=== PATIENT | male | born 1985 | race Caucasian/White ===

== ENCOUNTER 2021-10-23 07:49 | Emergency (ER) | payer OTHER, SELFPAY ==
[2021-10-23 07:55] VITALS: PULSE 124; RESP 20; TEMP 36.4; O2SAT 97
[2021-10-23] MEDS: LORazepam (*CRX) 1 MG TABLET 2 MG PO (08:10)
--- NOTE | 2021-10-23 08:10 | ED.ALCOHOL ---
HPI - Alcohol General Chief Complaint: Alcohol Stated Complaint: ETOH withdrawal Time Seen by Provider: 10/23/21 07:51 History of Present Illness HPI narrative: 36yoM states he just wants some ativan so he doesn't have go to into withdrawal; his last drink was 8 hours ago. He is denying any symptoms currently other than he just wants to go so he can find a store to buy himself another drink. Related Data Allergies Allergy/AdvReac Type Severity Reaction Status Date / Time No Known Allergies Allergy Verified 10/23/21 08:01 Review of Systems Review of Systems: CONST: No fever. HEENT: No sore throat C/V: No chest pain RESP: No cough GI: no abdominal pain : No dysuria. M/S: No joint pain. SKIN: No rash. NEURO: [No headache or focal numbness or weakness] PSYCH: No thoughts of self-harm or harm of others PMFSH Past Medical History Medical History (Updated 10/23/21 @ 08:26 by Tania Vega MD) Alcohol use disorder Surgical History Surgical History (Updated 10/23/21 @ 08:26 by Tania Vega MD) H/O exploratory laparotomy Social History Social History (Updated 10/23/21 @ 08:26 by Tania Vega MD) Alcohol intake: current Exam Narrative: EXAMINATION OF ORGAN SYSTEMS/BODY AREAS: Constitutional: Vital signs per nursing GENERAL:[No acute distress, non-toxic appearing.] HEAD: Normal with no signs of head trauma. EYES: EOMI, conjunctiva normal ENT: Hearing grossly intact LUNGS: Nonlabored breathing. HEART: Regular rate, tachycardic ABD: [Soft], nondistended EXT: Normal range of motion SKIN: [No rashes or lesions.] NEURO: [Alert and oriented x 3. No gross focal sensory or strength deficits. No slurred speech; ambulating with steady gait] PSYCH: Slightly manic and pressured speech but cooperative, answering questions, directable. Course Vital Signs Vital signs: Vital Signs Temperature 97.6 F 10/23/21 07:55 Pulse Rate 124 H 10/23/21 07:55 Respiratory Rate 20 10/23/21 07:55 Pulse Oximetry 97 10/23/21 07:55 Oxygen Delivery Room Air 10/23/21 07:55 Temperature 97.6 F 10/23/21 07:55 Pulse Rate 124 H 08/20/22 07:55 Respiratory Rate 20 10/23/21 07:55 Pulse Oximetry 97 10/23/21 07:55 Oxygen Delivery Room Air 10/23/21 07:55 MDM - Alcohol MDM Narrative Medical decision making narrative: 36-year-old male presents stating that he was only brought here because he was worried about going to withdrawal, but he did not want to be here and he wanted to leave so that he could buy beer so that he would not go into withdrawal. Vital signs here notable for tachycardia while he was striding around the room but he is refusing vital signs otherwise. On exam he does appear slightly manic however he is currently clinically sober with normal speech and ambulating with normal steady gait, he does not want to stay, and I cannot hold him here against as well. I do not feel he is acutely psychotic at this time nor do I have any reason to hold him, he is still of sound mind with intact insight/reasoning. He is given a bus pass and I did give him a small dose of Ativan, he is calm and cooperative, he was discharged from here ambulating with steady gait in no apparent distress. Discharge Plan Discharge Clinical Impression: Alcoholic intoxication Patient Disposition: Home, Self-Care Condition: Stable Instructions: Antibiotic Form, Abuse of Alcohol (ED) Additional Instructions: Please follow up with your doctor; come back if you feel worse. Follow-up/Referrals: Estelle Norwood DO [Physician] - 2 Days
== END 2021-10-23 08:20 | disposition home or self-care (01) ==
LOC: ANHED 08:31
PROVIDERS: Emergency Provider Emergency Medicine
DX: F10.120 Alcohol abuse with intoxication, uncomplicated (principal)
CPT/HCPCS: 99283; A9270

== ENCOUNTER 2023-04-24 21:58 | Emergency (ER) | payer OTHER, SELFPAY ==
[2023-04-24 22:14] VITALS: BP 142/79; PULSE 95; RESP 20; TEMP 36.6; O2SAT 98
--- NOTE | 2023-04-24 22:20 | ED.ALCOHOL ---
HPI - Alcohol General Chief Complaint: Alcohol Stated Complaint: ETOH+ FOUND [facility] Time Seen by Provider: 04/24/23 22:13 History of Present Illness HPI narrative: 37-year-old male presenting to the emergency department for evaluation of alcohol intoxication. Patient states he is attempting to quit alcohol but did drink multiple beers and some shots today. Patient denies any homicidal suicidal ideation. Patient was found psychiatric and patient is unsure how he got there. patient does admit to alcohol intoxication but denies any homicidal suicidal ideation. Related Data Allergies Allergy/AdvReac Type Severity Reaction Status Date / Time No Known Allergies Allergy Verified 04/24/23 22:45 Review of Systems Review of Systems: All systems reviewed & are unremarkable except as noted in HPI and below PMFSH Past Medical History Medical History (Updated 04/26/23 @ 00:01 by Alea Gilbert) Alcohol use disorder Surgical History Surgical History (Updated 10/23/21 @ 08:26 by Tania Vega MD) H/O exploratory laparotomy Social History Social History (Updated 10/23/21 @ 08:26 by Tania Vega MD) Alcohol intake: current Exam Narrative: APPEARANCE: Intoxicated but well-appearing HEAD: normocephalic, atraumatic. EYES: PERRLA/EOMI, conjunctivae clear. NOSE: Normal no drainage EARS:TMS clear with good light reflex. THROAT: Pharynx clear, no exudate. NECK: Supple. No adenopathy, no masses. RESPIRATORY: Airway patent, respirations nonlabored. Clear to auscultation bilaterally, no rales, rhonchi, wheezing. CARDIOVASCULAR: Regular rate and rhythm without murmurs rubs or gallops. ABDOMINAL: Soft, nontender, nondistended, normal bowel sounds MUSCULOSKELETAL: Moves all extremities. Strength/ROM intact, No edema, No calf tenderness. NEURO: Alert. Cranial nerves II through XII intact. grossly intact SKIN: Warm, dry. Normal Color Course Course Emergency Course: 37-year-old male presenting emergency department for evaluation of alcohol intoxication. Patient was denying homicidal or suicidal ideation. Patient states he does not have a place to go and does not have any transportation. Patient care is being signed out to the daytime physician pending patient's sobriety or transportation. Vital Signs Vital signs: Vital Signs Temperature 97.8 F 04/24/23 22:14 Pulse Rate 95 04/24/23 22:14 Respiratory Rate 20 04/24/23 22:14 Blood Pressure 142/79 H 04/24/23 22:14 Pulse Oximetry 98 04/24/23 22:14 Oxygen Delivery Room Air 04/24/23 22:14 Temperature 97.8 F 04/24/23 22:14 Pulse Rate 95 04/24/23 22:14 Respiratory Rate 20 04/24/23 22:14 Blood Pressure 142/79 H 04/24/23 22:14 Pulse Oximetry 98 04/24/23 22:14 Oxygen Delivery Room Air 04/24/23 22:14 MDM - Alcohol Lab Data 04/24/23 23:17 04/24/23 23:17 Labs: Lab Results 04/24/23 Range/Units 23:17 WBC Cancelled RBC Cancelled Hgb Cancelled Hct Cancelled MCV Cancelled MCH Cancelled MCHC Cancelled RDW Cancelled Plt Count Cancelled MPV Cancelled Immature Gran % (Auto) Cancelled Neut % (Auto) Cancelled Lymph % (Auto) Cancelled [place] % (Auto) Cancelled Eos % (Auto) Cancelled Baso % (Auto) Cancelled Lymph # (Auto) Cancelled [place] # (Auto) Cancelled Eos # (Auto) Cancelled Baso # (Auto) Cancelled Abs Immat Gran (auto) Cancelled Absolute Neuts (auto) Cancelled Absolute Nucleated RBC Cancelled Nucleated RBC % Cancelled % Immature Plt Fraction Cancelled PT 24.2 H (11.1-14.7) Seconds INR 2.0 APTT 32.8 (22.3-36.8) SECONDS Sodium 143 (137-145) mmol/L Potassium 3.9 (3.4-5.0) mmol/L Chloride 107 (98-107) mmol/L Carbon Dioxide 23 (22-30) mmol/L Anion Gap 13 (8-16) mmol/L BUN 12 (9-20) mg/dL Creatinine 0.80 (0.7-1.3) mg/dL Estim Creat Clear Calc Not Reportable Estim
--- NOTE | 2023-04-24 23:08 | PC.NURSE ---
This RN and TIERRA Jimenes have been unsuccessful on obtaining blood from pt. KURT Solano at bedside attempting.
[2023-04-24 23:29] LABS: Appearance Urine Clear (Clear); Bacteria Urine None Seen /hpf; Bilirubin Urine Negative (Negative); Blood Urine Negative (Negative); Color Urine Yellow (Yellow); Glucose Urine UA Negative (Negative); Ketones Urine Negative (Negative); Leukocyte Esterase Ur Negative LEU/UL (Negative); Nitrate Urine Negative (Negative); Non Pathogenic Casts 0-2; Protein Urine 1+ mg/dL (Negative); RBC Urine 0-2 /hpf (0-2); Specific Grav Ur 1.009 (1.001-1.035); Squamous Epithelial Cell Urine None seen /hpf (Few); Urobilinogen Urine 0.2 mg/dL (<2.0); WBC Urine 0-5 /hpf
[2023-04-24 23:30] LABS: Add Urine Microscopic? YES
[2023-04-24 23:34] LABS: Partial Thromboplastin Time 32.8 SECONDS (22.3-36.8); Prothrombin Time 24.2 Seconds (11.1-14.7)
[2023-04-24 23:56] LABS: Ethanol 330 mg/dL (<10)
[2023-04-24 23:59] LABS: Alanine Aminotransferase 67 U/L (6-50); Albumin Level 4.4 g/dL (3.5-5.1); Alkaline Phosphatase 100 U/L (38-126); Anion Gap 13 mmol/L (8-16); Aspartate Amino Transferase 127 U/L (17-59); Bilirubin,Total 0.6 mg/dL (0.2-1.3); Blood Urea Nitrogen 12 mg/dL (9-20); Calcium 8.5 mg/dL (8.4-10.2); Carbon Dioxide 23 mmol/L (22-30); Chloride 107 mmol/L (98-107); Estimated Glomerular Filt Rate > 60; Glucose 99 mg/dL (65-110); Potassium 3.9 mmol/L (3.4-5.0); Sodium 143 mmol/L (137-145)
--- NOTE | 2023-04-25 01:31 | PC.NURSE ---
Pt resting comfortably in bed sleeping. Chest rise and fall noted.
--- NOTE | 2023-04-25 06:37 | PC.NURSE ---
This RN and PAUL Almonte went into pt room to obtain lab redraw and covid pcr. Pt allowing instructor adjunct surgical technician to draw labs, but refusing covid swab at this time. Charge, KURT Dudley made aware.
--- NOTE | 2023-04-25 07:13 | PC.NURSE ---
report given to KURT Austin at this time.
--- NOTE | 2023-04-25 07:25 | PC.NURSE ---
Pt refuses Covid swab and blood draw.
--- NOTE | 2023-04-25 08:25 | PC.NURSE ---
Pt denies SI and HI and stated he wanted to leave. Pt was A&Ox4. Pt asked for clothing and patient exited ER. Pt non cooperative with staff by refusing blood draw and covid swab.
--- NOTE | 2023-04-25 08:30 | PC.NURSE ---
Pt left by elopement.
== END 2023-04-25 08:31 | disposition left against medical advice (07) ==
PROVIDERS: Emergency Provider Emergency Medicine
DX: F10.129 Alcohol abuse with intoxication, unspecified (principal); Y90.8 Blood alcohol level of 240 mg/100 ml or more
CPT/HCPCS: 36415; 80053; 80307; 81001; 85610; 85730; 99283

== ENCOUNTER 2023-05-02 14:19 | Emergency (ER) | payer OTHER, SELFPAY ==
--- NOTE | ~2023-05-02 | US_ITS ---
EXAMINATION: US venous doppler UE RT DATE: 05/02/2023 17:57 INDICATION: IV infiltration in R forearm, area of swelling/red . TECHNIQUE: Grayscale ultrasound images without and with compression and Doppler ultrasound images of the right upper extremity veins were obtained. COMPARISON: None. FINDINGS: The visualized portions of the right internal jugular vein, subclavian vein, axillary vein, brachial veins, basilic vein, cephalic vein, radial vein, and ulnar vein are patent. IMPRESSION: No deep venous thrombosis. Reviewed, dictated and finalized at location K. ZI NITRATOR OPERATOR IMPRESSION: No deep venous thrombosis.
[2023-05-02 14:30] VITALS: BP 145/79; PULSE 97; RESP 20; TEMP 37.4; O2SAT 98
[2023-05-02 16:37] VITALS: BP 139/92; PULSE 91; RESP 17; TEMP 36.3; O2SAT 100
--- NOTE | 2023-05-02 16:45 | ED.SKABFB ---
HPI - Skin/Abscess/Foreign Bdy General Chief complaint: Skin/Abscess/Foreign Body Stated complaint: skin right posterior forearm Time Seen by Provider: 05/02/23 16:40 Focused HPI: Patient is a 37 y/o male who presents to the ED with c/o R forearm pain/swelling. Patient reports he was recently admitted to [facility] for 5 days for alcohol detox. He was discharged today and is currently residing at [facility]. He had an IV in his R forearm throughout his hospitalization and has since noticed an area of redness, swelling, tenderness at the site of the IV. He is concerned for infection. Denies fevers. Denies previous history of blood clots. Denies chest pain or shortness of breath. GENERAL: Well-appearing, well-nourished, and in no acute distress. HEAD: Normocephalic, atraumatic. CHEST: Clear to auscultation. ?No respiratory distress. HEART: Regular rate and rhythm.? MSK: Approx 5x7cm area of induration to R ventral forearm with erythema, minimal warmth, central puncture wound from previous IV. Focal TTP surrounding puncture wound. No drainage. No appreciable fluctuance. NEURO: ?Alert and oriented x3. Patient screened in triage and initial orders placed.? ?Additional care and disposition to be based upon?diagnostic testing and treatment. Related Data Allergies Allergy/AdvReac Type Severity Reaction Status Date / Time No Known Allergies Allergy Verified 05/02/23 14:20 [facility] Past Medical History Medical History Alcohol use disorder Surgical History Surgical History H/O exploratory laparotomy Social History Social History Smoking status: Current every day smoker Alcohol intake: current Substance use: never Course Vital Signs Vital signs: Vital Signs Temperature 99.3 F 05/02/23 14:30 Pulse Rate 97 05/02/23 14:30 Respiratory Rate 20 05/02/23 14:30 Blood Pressure 145/79 H 05/02/23 14:30 Pulse Oximetry 98 05/02/23 14:30 Oxygen Delivery Room Air 05/02/23 14:30 Temperature 99.0 F 05/02/23 18:35 Pulse Rate 97 05/02/23 18:35 Respiratory Rate 18 05/02/23 18:35 Blood Pressure 140/70 05/02/23 18:35 Pulse Oximetry 98 05/02/23 18:35 Oxygen Delivery Room Air 05/02/23 14:30 MDM - Skin/Abscess/Foreign Bdy MDM Narrative Medical decision making narrative: MSE by ADONAY in triage. Lab Data 05/02/23 17:04 05/02/23 17:04 Labs: Lab Results 05/02/23 Range/Units 17:04 WBC 6.7 (4.5-10.0) K/mm3 RBC 4.18 L (4.6-6.20) M/mm3 Hgb 12.6 L (14.0-18.0) g/dL Hct 39.7 L (42.0-52.0) % MCV 95.0 (80-100) fl MCH 30.1 (26-34) pg MCHC 31.7 L (32-36) g/dl RDW 14.7 H (11.5-14.5) % Plt Count 233 (150-375) k/mm3 MPV 10.0 (7.4-10.4) fl Immature Gran % (Auto) 0.7 H (0-0.5) % Neut % (Auto) 61.0 (45.5-73.1) % Lymph % (Auto) 19.6 (18.3-44.2) % Hand % (Auto) 17.4 H (2.6-8.5) % Eos % (Auto) 0.4 (0-4.4) % Baso % (Auto) 0.9 (0.2-1.2) % Lymph # (Auto) 1.32 (0.9-3.2) K/mm3 Hand # (Auto) 1.2 H (0.1-0.6) K/mm3 Eos # (Auto) 0.0 (0-0.3) K/mm3 Baso # (Auto) 0.1 (0.0-0.1) K/mm3 Abs Immat Gran (auto) 0.05 H (0.00-0.031) K/mm3 Absolute Neuts (auto) 4.1 (1.3-6.7) K/mm3 Absolute Nucleated RBC 0.0 (0.0-0.012) K/mm3 Nucleated RBC % 0.0 (0.0-0.2) % % Immature Plt Fraction 4.4 (0.9-11.2) % ESR Cancelled Sodium 135 L (137-145) mmol/L Potassium 4.0 (3.4-5.0) mmol/L Chloride 102 (98-107) mmol/L Carbon Dioxide 24 (22-30) mmol/L Anion Gap 9 (8-16) mmol/L BUN 11 (9-20) mg/dL Creatinine 0.70 (0.7-1.3) mg/dL Estim Creat Clear Calc 135 ml/min Estimated GFR > 60 (59 - ) Glucose 94 (65-110) mg/dL Calcium 9.0 (8.4-10.2) mg/dL Total Bilirubin 0.6 (0.2-1.3) mg/dL AST 48 (17-59) U/L ALT 51 H (6-5
[2023-05-02] MEDS: ACETAMINOPHEN 500 MG TABLET 1000 MG PO (17:05)
[2023-05-02] MEDS: CEPHALEXIN 500 MG CAPSULE PO (17:05)
[2023-05-02 17:14] LABS: Basophils Absolute Auto 0.1 K/mm3 (0.0-0.1); Basophils Percent Auto 0.9 % (0.2-1.2); Eosinophils Percent Auto 0.4 % (0-4.4); Hematocrit 39.7 % (42.0-52.0); Hemoglobin 12.6 g/dL (14.0-18.0); Immature Granulocyte Absolute 0.05 K/mm3 (0.00-0.031); Immature Granulocyte Percent A 0.7 % (0-0.5); Immature Platelet Fraction Pct 4.4 % (0.9-11.2); Lymphocytes Absolute Auto 1.32 K/mm3 (0.9-3.2); Lymphocytes Percent Auto 19.6 % (18.3-44.2); Mean Corpuscular HGB Conc 31.7 g/dl (32-36); Mean Corpuscular Hemoglobin 30.1 pg (26-34); Monocytes Absolute Auto 1.2 K/mm3 (0.1-0.6); Monocytes Percent Auto 17.4 % (2.6-8.5); Neutrophils Absolute Auto 4.1 K/mm3 (1.3-6.7); Platelet Count Result 233 k/mm3 (150-375); Red Blood Count 4.18 M/mm3 (4.6-6.20); Red Cell Distribution Width 14.7 % (11.5-14.5); White Blood Count 6.7 K/mm3 (4.5-10.0)
[2023-05-02 17:26] LABS: Alanine Aminotransferase 51 U/L (6-50); Albumin Level 4.6 g/dL (3.5-5.1); Alkaline Phosphatase 92 U/L (38-126); Anion Gap 9 mmol/L (8-16); Aspartate Amino Transferase 48 U/L (17-59); Bilirubin,Total 0.6 mg/dL (0.2-1.3); Blood Urea Nitrogen 11 mg/dL (9-20); CRP < 0.5 mg/dL (<1.0); Carbon Dioxide 24 mmol/L (22-30); Chloride 102 mmol/L (98-107); Estimated CRCL calculation 135 ml/min; Estimated Glomerular Filt Rate > 60; Glucose 94 mg/dL (65-110); Sodium 135 mmol/L (137-145)
--- NOTE | 2023-05-02 17:26 | PC.NURSE ---
difficult lab draw, this RN attempted x3
--- NOTE | 2023-05-02 18:16 | ED.SKABFB ---
HPI - Skin/Abscess/Foreign Bdy General Chief complaint: Skin/Abscess/Foreign Body Stated complaint: skin right posterior forearm Time Seen by Provider: 05/02/23 16:40 History of Present Illness HPI narrative: This is a 37-year-old male, recently discharged from outside hospital for alcohol withdrawal, who presents to the emergency department complaining a red, tender swollen area on the right forearm. The patient states he had an IV in the area of his pain. He states he developed swelling for the past 2 days in that area. This is associated with some subjective fevers and chills. He has no other complaints at this time. Related Data Allergies Allergy/AdvReac Type Severity Reaction Status Date / Time No Known Allergies Allergy Verified 05/02/23 14:20 Review of Systems Review of Systems: CONSTITUTIONAL: Denies fever, chills, or sweats. CARDIOVASCULAR: Denies chest pain, palpitations, or edema. RESPIRATORY: Denies cough or dyspnea. GASTROINTESTINAL: Denies abdominal pain, nausea, vomiting, or diarrhea. GENITOURINARY: Denies dysuria or hematuria. SKIN: Denies rash or itching. MUSCULOSKELETAL: Right forearm pain denies back pain or myalgia. NEUROLOGIC: Denies headache, numbness, dizziness, or weakness. PSYCHIATRIC: Denies anxiety or depression. PMFSH Past Medical History Medical History Alcohol use disorder Surgical History Surgical History H/O exploratory laparotomy Social History Social History Smoking status: Current every day smoker Alcohol intake: current Substance use: never Exam Narrative: GENERAL: Well-developed, well-nourished, and in no acute distress. HEAD: Normocephalic, atraumatic. EYES: PERRLA and EOMI. CHEST: Clear to auscultation. No respiratory distress. No wheezes rales or rhonchi HEART: Regular rate and rhythm. No murmur heard. Normal peripheral pulses. EXTREMITIES: There is a 10 x 8 cm area of swelling noted over the dorsomedial aspect of the right forearm. Within this area there is approximate 4 x 6 cm area tender, blanching erythema. There is a punctate lesion at the center of these regions, consistent with previous IV site. Normal range of motion. No edema. SKIN: Skin otherwise warm, dry, no rash. NEURO: Alert and oriented x3. No focal deficit. Moving all 4 limbs spontaneously PSYCH: Normal mood and affect. Course Course Emergency Course: 18:19 - DVT ultrasound of the right upper extremity negative for DVT. Chemistries unremarkable. CBC demonstrates mild anemia with hemoglobin of 12.6 (unknown baseline). The patient's exam is consistent with cellulitis. Will discharge with oral antibiotics and recommendation for primary care follow-up. I discussed the findings and recommendations with the patient. Discussed return and emergency precautions including signs/symptoms of antibiotic failure and neurovascular compromise. The patient voiced understanding and agreement with the plan. All questions answered to his satisfaction. Vital Signs Vital signs: Vital Signs Temperature 99.3 F 05/02/23 14:30 Pulse Rate 97 05/02/23 14:30 Respiratory Rate 20 05/02/23 14:30 Blood Pressure 145/79 H 05/02/23 14:30 Pulse Oximetry 98 05/02/23 14:30 Oxygen Delivery Room Air 05/02/23 14:30 Temperature 99.0 F 05/02/23 18:35 Pulse Rate 97 05/02/23 18:35 Respiratory Rate 18 05/02/23 18:35 Blood Pressure 140/70 05/02/23 18:35 Pulse Oximetry 98 05/02/23 18:35 Oxygen Delivery Room Air 05/02/23 14:30 MDM - Skin/Abscess/Foreign Bdy MDM Narrative Medical decision making narrative: Plan: Labs, imaging, reassess Differential Diagnosis Differential diagnosis: Likely cellulitis and other (DVT, hematoma, other) Lab Data 05/02/23 17:04 05/02/23 17:04 Labs: Lab Resu
[2023-05-02 18:35] VITALS: BP 140/70; PULSE 97; RESP 18; TEMP 37.2; O2SAT 98
== END 2023-05-02 18:45 | disposition home or self-care (01) ==
PROVIDERS: Physician Assistant; Emergency Provider Preventive Medicine Aerospace Medicine
DX: L03.113 Cellulitis of right upper limb (principal); F17.200 Nicotine dependence, unspecified, uncomplicated
CPT/HCPCS: 36415; 80053; 85025; 85055; 86140; 93971; 99283; 99284; A9270